=== PATIENT | female | born 2000 | race Caucasian/White ===

== ENCOUNTER 2023-11-01 08:45 | Outpatient (REF) | payer OTHER, SELFPAY ==
--- NOTE | ~2023-11-01 | US_ITS ---
EXAMINATION: US PELVIS COMPLETE CLINICAL INFORMATION: Irregular menses COMPARISON: None TECHNIQUE: Transabdominal and transvaginal imaging was performed. FINDINGS: The uterus is of normal size and echogenicity measuring 8.0 x 2.9 x 4.0 cm. A regular homogeneous endometrium is identified measuring 0.5 cm. Both ovaries are of normal size and echogenicity. The right measures 2.8 x 1.6 x 2.4 cm for a volume of 7 mL. The left measures 2.4 x 1.7 x 2.1 cm for a volume of 3.3 mL. There is no pelvic free fluid. US/US pelvic and transvaginal IMPRESSION: Unremarkable pelvic ultrasound.
== END 2023-11-01 08:46 | disposition home or self-care (01) ==
LOC: HO.UMASIMG 08:45
PROVIDERS: Visit Provider Registered Nurse
DX: N93.8 Other specified abnormal uterine and vaginal bleeding (principal)
CPT/HCPCS: 76830; 76856